=== PATIENT | male | born 1955 | race Caucasian/White ===

== ENCOUNTER 2017-06-24 13:21 | Observation (INO) | payer BC ==
[2017-06-24] MEDS ORDERED: DEXAMETHASONE 10 MG/ML VIAL ONE (13:55)
[2017-06-24] MEDS ORDERED: FENTANYL CITR 100 MCG/2 ML ONE ×2 (13:56→16:43)
[2017-06-24] MEDS ORDERED: ONDANSETRON 4 MG/2 ML VIAL ONE (13:56)
[2017-06-24] MEDS ORDERED: FAMOTIDINE 20 MG/2 ML VIAL IV ONE (13:56)
[2017-06-24] MEDS ORDERED: NA CHLORIDE 0.9% 1,000 ML ONE (13:56)
[2017-06-24] MEDS ORDERED: DIAZEPAM 10 MG/2 ML INJ SYRINGE ONE (13:58)
[2017-06-24 14:16] LABS: Absolute Lymphocytes (CBC) 0.6 K/uL (0.7-4.9); Absolute Monocytes 0.4 K/uL (0.1-1.3); Absolute Neutrophil 3.1 K/uL (1.8-8.0); Basophils % 0.5 % (0-1.3); Eosinophils % 1.4 % (0-4.4); MCH 33.7 pg (27.0-35.0); MCV 99.5 fL (80-100); MPV 8.8 fL (7.6-11.3); Monocytes % 8.9 % (3.3-12.3); RBC Red Blood Cell Count 4.52 M/uL (4.33-5.43)
[2017-06-24 14:18] LABS: Protime INR 1.01
[2017-06-24 14:31] LABS: Albumin 3.8 g/dL (3.2-5.5); Bilirubin Direct 0.1 mg/dL (0-0.2); Bilirubin Total 0.5 mg/dL (0.3-1.2); Magnesium 2.1 mg/dL (1.8-2.5); Protein, Total 6.6 g/dL (6.0-8.3)
[2017-06-24 14:34] LABS: CKMB Creatine Kinase MB 1.6 ng/ml (0.3-4.0)
--- NOTE | 2017-06-24 15:15 | RAD REPORT ---
EXAM DESCRIPTION: CT - Angio Aorta For Dissection - 06/24/2017 2:57 pm CLINICAL HISTORY: . Chest and abd pain COMPARISON: CT chest 2015 TECHNIQUE: Computed tomography angiography of the chest, abdomen pelvis were obtained. 100 cc Isovue 370 was administered intravenously. Coronal and sagittal reconstruction were performed. All CT scans are performed using dose optimization technique as appropriate and may include automated exposure control or mA/KV adjustment according to patient size. FINDINGS: An aortic dissection is not seen. An aortic aneurysm is not displayed. The celiac, SMA and ALBERT are patent . A lung consolidation is not present. A pericardial effusion is not seen. A pleural effusion is not n oted. Liver has a diminished attenuation consistent fatty infiltration Spleen, pancreas adrenals kidneys demonstrate no significant abnormality. A 2.7 centimeter right yousif l cyst is seen The appendix is normal. There no evidence diverticulitis. No ascites is noted. Small inguinal hernias contain fat IMPRESSION: Negative for an aortic dissection.
--- NOTE | 2017-06-24 15:16 | RAD REPORT ---
EXAM DESCRIPTION: Prasanth Single View06/24/2017 2:43 pm CLINICAL HISTORY: Chest pain COMPARISON: August 2016 FINDINGS: The lungs appear clear of acute infiltrate. The heart is normal size IMPRESSION: No acute abnormalities displayed
--- NOTE | 2017-06-24 16:11 | EDPHYS ---
Physician Documentation [facility] Name: Markel Yao Age: 62 yrs Sex: Male : 1955 Arrival Date: 06/24/2017 Time: 13:23 Bed 28 Private MD: ED Physician Uriah Archer HPI: 06/24 13:53 This 62 yrs old Male presents to ER via EMS with complaints of Back Pain. tania 13:53 The patient presents with pain and decreased range of motion, and an injury. The tania symptoms are located in the low back. Onset: The symptoms/episode began/occurred just prior to arrival. The pain radiates to the abdomen. Associated signs and symptoms: The patient has no apparent associated signs or symptoms. Modifying factors: The patient symptoms are alleviated by remaining still, the patient symptoms are aggravated by movement. Severity of symptoms: At their worst the symptoms were moderate, severe, in the emergency department the symptoms have improved, moderately. The patient has not experienced similar symptoms in the past. Historical: - Allergies: 13:26 No Known Allergies; ed1 - Home Meds: 13:26 levothyroxine 25 mcg tab 1 tab once daily [Active]; ed1 - PMHx: 13:26 Hypothyroidism; tonsil cancer; ed1 - PSHx: 13:26 None; ed1 - Immunization history:: Adult Immunizations unknown. - Social history:: Smoking status: Patient uses tobacco products, smokes one pack cigarettes per day. ROS: 13:54 Constitutional: Negative for fever, chills, and weight loss, Eyes: Negative for injury, tania pain, redness, and discharge, ENT: Negative for injury, pain, and discharge, Neck: Negative for injury, pain, and swelling, Cardiovascular: Negative for chest pain, palpitations, and edema, Respiratory: Negative for shortness of breath, cough, wheezing, and pleuritic chest pain, : Negative for injury, bleeding, discharge, and swelling, MS/Extremity: Negative for injury and deformity, Skin: Negative for injury, rash, and discoloration, Neuro: Negative for headache, weakness, numbness, tingling, and seizure, Psych: Negative for depression, anxiety, suicide ideation, homicidal ideation, and hallucinations, Allergy/Immunology: Negative for hives, rash, and allergies, Endocrine: Negative for neck swelling, polydipsia, polyuria, polyphagia, and marked weight changes, Hematologic/Lymphatic: Negative for swollen nodes, abnormal bleeding, and unusual bruising. 13:54 Abdomen/GI: Positive for abdominal pain, abdominal cramps, abdominal distension, of the right upper quadrant, left upper quadrant, right lower quadrant and left lower quadrant. Exam: 13:54 Constitutional: This is a well developed, well nourished patient who is awake, alert, tania and in no acute distress. Head/Face: Normocephalic, atraumatic. Eyes: Pupils equal round and reactive to light, extra-ocular motions intact. Lids and lashes normal. Conjunctiva and sclera are non-icteric and not injected. Cornea within normal limits. Periorbital areas with no swelling, redness, or edema. ENT: Nares patent. No nasal discharge, no septal abnormalities noted. Tympanic membranes are normal and external auditory canals are clear. Oropharynx with no redness, swelling, or masses, exudates, or evidence of obstruction, uvula midline. Mucous membranes moist. Neck: Trachea midline, no thyromegaly or masses palpated, and no cervical lymphadenopathy. Supple, full range of motion without nuchal rigidity, or vertebral point tenderness. No Meningismus. Chest/axilla: Normal chest wall appearance and motion. Nontender with no deformity. No lesions are appreciated. Cardiovascular: Regular rate and rhythm with a normal S1 and S2. No gallops, murmurs, or rubs. Normal PMI, no JVD. No pulse deficits. Respiratory: Lungs have equal breath sounds bilaterally, clear to auscultation and percussion. No rales, rhonchi or wheezes noted. No increased work of breathing, no retractions or nasal flaring. Male : Normal genitalia with no discharge or lesions. Skin: Warm, dry with normal turgor. Normal color with no rashes, no lesions, and no evidence of cellulitis. 13:54 Abdomen/GI: Inspection: distension, Bowel sounds: diminished, Palpation: mild abdominal tenderness, in the right upper quadrant, left upper quadrant, right lower quadrant and left lower quadrant. Vital Signs: 13:26 BP 151 / 108; Pulse 65; Resp 20; Temp 98.5(O); Pulse Ox 100% on R/A; Weight 83.91 kg ed1 (R); Height 5 ft. 11 in. (180.34 cm) (R); Pain 10/10; 14:37 BP 133 / 101; Pulse 69; Resp 18; Pulse Ox 97% on R/A; Pain 7/10; ed1 15:32 BP 129 / 93; Pulse 65; Resp 22; Pulse Ox 99% on R/A; Pain 10/10; ed1 17:40 BP 146 / 101; Pulse 67; Resp 18; Temp 98.1(O); Pulse Ox 98% on R/A; Pain 5/10; ed1 13:26 Body Mass Index 25.80 (83.91 kg, 180.34 cm) ed1 MDM: 13:41 Patient medically screened. [facility] 13:58 Data reviewed: vital signs, nurses notes, lab test result(s), EKG, radiologic studies, [facility] CT scan, plain films. 06/24 13:49 Order name: Basic Metabolic Panel; Complete Time: 16:06 tania 06/24 13:49 Order name: BNP; Complete Time: 16:06 tania 06/24 13:49 Order name: CBC with Diff; Complete Time: 16: tania 06/24 13:49 Order name: Ckmb; Complete Time: 16: tania 06/24 13:49 Order name: CPK; Complete Time: 16: tania 06/24 13:49 Order name: LFT's; Complete Time: 16: tania 06/24 13:49 Order name: Magnesium; Complete Time: 16: tania 06/24 13:49 Order name: PT-INR; Complete Time: 16:06 tania 06/24 13:49 Order name: Ptt, Activated; Complete Time: 16: tania 06/24 13:49 Order name: Troponin (emerg Dept Use Only); Complete Time: 16:06 tania 06/24 13:49 Order name: Lipase; Complete Time: 16:06 tania 06/24 13:49 Order name: Urine Culture [facility] 06/24 15:48 Order name: Urine Dipstick--Ancillary (enter results); Complete Time: 17:40 ag 06/24 16:21 Order name: Basic Metabolic Panel EDGA 06/24 13:49 Order name: XRAY Chest (1 view); Complete Time: 16:06 tnaia 06/24 13:49 Order name: EKG; Complete Time: 13:49 tania 05/20 13:49 Order name: CT Aorta for Dissection; Complete Time: 16:06 tania 06/24 16:21 Order name: Regular EDMS 06/24 16:21 Order name: Basic Metabolic Panel EDMS 06/24 16:21 Order name: CBC with Automated Diff EDMS 06/24 16:21 Order name: CBC with Automated Diff EDMS 06/24 16:21 Order name: Lumbar Spine Wo Con EDMS 06/24 13:49 Order name: Cardiac monitoring; Complete Time: 14:06 [facility] 06/24 13:49 Order name: EKG - Nurse/Tech; Complete Time: 14:06 [facility] 06/24 13:49 Order name: IV Saline Lock; Complete Time: 13:50 [facility] 06/24 13:49 Order name: Labs collected and sent; Complete Time: 14:06 [facility] 06/24 13:49 Order name: O2 Per Protocol; Complete Time: 13:50 [facility] 06/24 13:49 Order name: O2 Sat Monitoring; Complete Time: 13:50 [facility] 06/24 13:49 Order name: Urine Dipstick-Ancillary (obtain specimen); Complete Time: 16:05 [facility] Administered Medications: 14:10 Drug: NS 0.9% 1000 ml Route: IV; Rate: 125 ml/hr; Site: right forearm; ed1 18:16 Follow up: IV Status: Infusion continued upon admission ed1 14:10 Drug: Pepcid 20 mg Route: IVP; Site: right forearm; aa5 15:30 Follow up: Response: No adverse reaction ed1 14:13 Drug: fentaNYL (PF) 50 mcg Route: IVP; Site: right forearm; aa5 15:31 Follow up: Response: No adverse reaction; Pain is decreased ed1 14:13 Drug: Zofran 4 mg Route: IVP; Site: right forearm; aa5 15:31 Follow up: Response: No adverse reaction ed1 14:13 Drug: Valium 5 mg Route: IVP; Site: right forearm; aa5 15:30 Follow up: Response: No adverse reaction; Pain is decreased ed1 14:13 Drug: Decadron - Dexamethasone 10 mg Route: IVP; Site: right forearm; aa5 15:30 Follow up: Response: No adverse reaction ed1 16:50 Drug: fentaNYL (PF) 50 mcg Route: IVP; Site: right forearm; ed1 17:40 Follow up: Response: No adverse reaction; Pain is decreased ed1 17:15 Drug: Lovenox 40 mg Route: Sub-Q; Site: left lower abdomen; ed1 17:39 Follow up: Response: No adverse reaction ed1 Disposition: 06/24/17 16:10 Hospitalization ordered by Danny Milan for Observation. Preliminary diagnosis is Low back pain - intractable. - Bed requested for Telemetry/MedSurg (observation). - Status is Observation. ed1 - Condition is Stable. - Problem is new. - Symptoms have improved. UTI on Admission? No Signatures: Dispatcher [employer] EDMS Uriah Archer MD MD cha Calderon, Audri, RN RN aa5 Skylar Issa LVN CASH CLERK ed1 Scarlet Hawkins, RN RN df Corrections: (The following items were deleted from the chart) 17:23 16:10 Hospitalization Ordered by Danny Milan MD for Observation. Preliminary diagnosis df is Low back pain - intractable. Bed requested for Telemetry/MedSurg (observation). Status is Observation. Condition is Stable. Problem is new. Symptoms have improved. UTI on Admission? No. [facility] 18:16 17:23 06/24/2017 16:10 Hospitalization Ordered by Danny Milan MD for Observation. ed1 Preliminary diagnosis is Low back pain - intractable. Bed requested for Telemetry/MedSurg (observation). Status is Observation. Condition is Stable. Problem is new. Symptoms have improved. UTI on Admission? No. df
--- NOTE | 2017-06-24 16:11 | ER ---
Nurse's Notes [facility] Name: Markel Yao Age: 62 yrs Sex: Male : 1955 Arrival Date: 06/24/2017 Time: 13:23 Bed 28 Private MD: Diagnosis: Low back pain-intractable Presentation: 06/24 13:23 Presenting complaint: EMS states: Was walking and all of a sudden got lower back pain. ed1 Transition of care: patient was not received from another setting of care. Onset of symptoms was June 24, 2017 at 09:00. Initial Sepsis Screen: Does the patient meet any 2 criteria? No. Patient's initial sepsis screen is negative. Does the patient have a suspected source of infection? No. Patient's initial sepsis screen is negative. Care prior to arrival: Medication(s) given: Toradol 30mg IV initiated. 20 GA, in the right forearm, Glucose check: 138. 13:23 Method Of Arrival: EMS: [facility] ed1 13:35 Acuity: AVNI 4 aa5 Triage Assessment: 13:26 General: Appears uncomfortable, Behavior is cooperative, agitated. Pain: Complains of ed1 pain in low back area Pain radiates to abdomen, right leg and left leg Pain currently is 10 out of 10 on a pain scale. Musculoskeletal: Circulation, motion, and sensation intact. Capillary refill < 3 seconds, in bilateral toes. Range of motion: intact in all extremities, Reports pain in low back area. Historical: - Allergies: 13:26 No Known Allergies; ed1 - Home Meds: 13:26 levothyroxine 25 mcg tab 1 tab once daily [Active]; ed1 - PMHx: 13:26 Hypothyroidism; tonsil cancer; ed1 - PSHx: 13:26 None; ed1 - Immunization history:: Adult Immunizations unknown. - Social history:: Smoking status: Patient uses tobacco products, smokes one pack cigarettes per day. Screenin:29 Abuse screen: Denies threats or abuse. Denies injuries from another. Nutritional ed1 screening: No deficits noted. Tuberculosis screening: No symptoms or risk factors identified. Fall Risk No fall in past 12 months (0 pts). No secondary diagnosis (0 pts). IV access (20 points). Ambulatory Aid- None/Bed Rest/Nurse Assist (0 pts). Gait- Impaired (20 pts.). Mental Status- Oriented to own ability (0 pts). Total Lopez Fall Scale indicates Low Risk Score (25-44 pts). Fall prevention measures have been instituted. Side Rails Up X 2 As available Patient and Family Educated on Fall Prevention Program and strategies. Assessment: 13:29 General: Appears in no apparent distress. Pain: Complains of pain in low back area Pain ed1 radiates to abdomen, right leg and left leg Pain currently is 10 out of 10 on a pain scale. Quality of pain is described as sharp, shooting, stabbing, Pain began 4 hours ago. Is continuous. Neuro: Level of Consciousness is awake, alert, obeys commands, Oriented to person, place, time, situation, Necktie Maker are equal bilaterally Moves all extremities. Full function Speech is normal, Facial symmetry appears normal, Pupils are PERRLA, Intact Denies weakness blurred vision dizziness, difficulty swallowing, paresthesias numbness headache photophobia diplopia. Cardiovascular: Denies chest pain, Heart tones S1 S2 present Capillary refill < 3 seconds in bilateral fingers Patient's skin is warm and dry. Respiratory: Airway is patent Respiratory effort is even, unlabored, Respiratory pattern is regular, symmetrical, Breath sounds are clear bilaterally. GI: No signs and/or symptoms were reported involving the gastrointestinal system. : No signs and/or symptoms were reported regarding the genitourinary system. EENT: No signs and/or symptoms were reported regarding the EENT system. Derm: Skin is pink, warm \T\ dry. Musculoskeletal: Circulation, motion, and sensation intact. Capillary refill < 3 seconds, in bilateral fingers. 13:29 Reassessment: I agree with assessment completed by SIDNEY Cheng . aa5 14:37 Reassessment: Patient appears in no apparent distress at this time. Patient and/or ed1 family updated on plan of care and expected duration. Pain level reassessed. Patient is alert, oriented x 3, equal unlabored respirations, skin warm/dry/pink. Patient states feeling better. Patient states symptoms have improved. 15:32 Reassessment: Patient appears in no apparent distress at this time. Patient and/or ed1 family updated on plan of care and expected duration. Pain level reassessed. Patient is alert, oriented x 3, equal unlabored respirations, skin warm/dry/pink. Pt returned from CT and reports an increase in pain. Dr. Archer notified. Vital Signs: 13:26 BP 151 / 108; Pulse 65; Resp 20; Temp 98.5(O); Pulse Ox 100% on R/A; Weight 83.91 kg ed1 (R); Height 5 ft. 11 in. (180.34 cm) (R); Pain 10/10; 14:37 BP 133 / 101; Pulse 69; Resp 18; Pulse Ox 97% on R/A; Pain 7/10; ed1 15:32 BP 129 / 93; Pulse 65; Resp 22; Pulse Ox 99% on R/A; Pain 10/10; ed1 17:40 BP 146 / 101; Pulse 67; Resp 18; Temp 98.1(O); Pulse Ox 98% on R/A; Pain 5/10; ed1 13:26 Body Mass Index 25.80 (83.91 kg, 180.34 cm) ed1 ED Course: 13:23 Patient arrived in ED. ed1 13:26 Arm band placed on right wrist. ed1 13:29 Patient has correct armband on for positive identification. Bed in low position. Call ed1 light in reach. Side rails up X2. 13:29 Maintain EMS IV. Dressing intact. Good blood return noted. Site clean \T\ dry. Gauge \T\ ed 1 site: 20 g L FA. 13:35 Triage completed. aa5 13:41 Uriah Archer MD is Attending Physician. tania 13:49 Skylar Issa LVN is Primary Nurse. ed1 13:56 Radiology exam delayed due to lab results not completed at this time. (BUN/Creatinine). cw1 14:00 EKG done, by ED staff, reviewed by Uriah Archer MD. dh3 14:05 Initial lab(s) drawn, by pr, sent to lab. dh3 14:30 XRAY Chest (1 view) In Process Unspecified. EDMS 14:[address] Scan. ed1 14:55 CT completed. Patient moved to CT via stretcher. Patient moved back from CT. cw1 14:57 CT Aorta for Dissection In Process Unspecified. EDMS 16:09 Danny Milan MD is Hospitalizing Provider. tania 17:52 No provider procedures requiring assistance completed. Patient admitted, IV remains in ed1 place. intact, No redness/swelling at site. Administered Medications: 14:10 Drug: NS 0.9% 1000 ml Route: IV; Rate: 125 ml/hr; Site: right forearm; ed1 18:16 Follow up: IV Status: Infusion continued upon admission ed1 14:10 Drug: Pepcid 20 mg Route: IVP; Site: right forearm; aa5 15:30 Follow up: Response: No adverse reaction ed1 14:13 Drug: fentaNYL (PF) 50 mcg Route: IVP; Site: right forearm; aa5 15:31 Follow up: Response: No adverse reaction; Pain is decreased ed1 14:13 Drug: Zofran 4 mg Route: IVP; Site: right forearm; aa5 15:31 Follow up: Response: No adverse reaction ed1 14:13 Drug: Valium 5 mg Route: IVP; Site: right forearm; aa5 15:30 Follow up: Response: No adverse reaction; Pain is decreased ed1 14:13 Drug: Decadron - Dexamethasone 10 mg Route: IVP; Site: right forearm; aa5 15:30 Follow up: Response: No adverse reaction ed1 16:50 Drug: fentaNYL (PF) 50 mcg Route: IVP; Site: right forearm; ed1 17:40 Follow up: Response: No adverse reaction; Pain is decreased ed1 17:15 Drug: Lovenox 40 mg Route: Sub-Q; Site: left lower abdomen; ed1 17:39 Follow up: Response: No adverse reaction ed1 Outcome: 16:10 Decision to Hospitalize by Provider. tania 17:52 Admitted to Tele accompanied by tech, family with patient, via stretcher, room 423, ed1 with chart, Report called to MACEY Bell 17:52 Condition: stable 17:52 Discharge instructions given to patient, family, Instructed on the need for admit, Demonstrated understanding of instructions. 18:16 Patient left the ED. ed1 Signatures: Dispatcher [employer] Uriah Ramos MD MD cha Calderon, Audri RN RN aa5 Skylar Issa, INJECTION MOULDING MACHINE OPERATOR INJECTION MOULDING MACHINE OPERATOR ed1 Natasha Cam 1 Minnie Soliman 3 Corrections: (The following items were deleted from the chart) 13:31 13:29 Fall Risk None identified. ed1 ed1
[2017-06-24] MEDS ORDERED: ACETAMINOPHEN 500 MG TAB PO PRN (16:15)
[2017-06-24] MEDS ORDERED: ONDANSETRON 4 MG/2 ML VIAL IV PRN (16:15)
[2017-06-24] MEDS ORDERED: IBUPROFEN 400 MG TAB PO PRN (16:18)
[2017-06-24 17:07] LABS: Urine Blood NEGATIVE (NEG); Urine Glucose NEGATIVE (NEG); Urine Protein NEGATIVE (NEG)
[2017-06-24] MEDS ORDERED: ENOXAPARIN 40 MG/0.4 ML SQ ONE (17:10)
[2017-06-24] MEDS: ENOXAPARIN 40 MG/0.4 ML SQ SCH (18:00)
[2017-06-24 18:35] VITALS: BMI 25.7
[2017-06-24] MEDS: NA CHLORIDE 0.9% 1,000 ML IV SCH ×2 (18:50→22:01)
[2017-06-24] MEDS: Morphine 2 MG/2 ML SYR IV PRN ×2 (19:37→23:42)
[2017-06-24] MEDS: FAMOTIDINE 20 MG/2 ML VIAL IV SCH (22:01)
[2017-06-24] MEDS: DIAZEPAM 5 MG TABLET PO PRN (22:01)
[2017-06-25] MEDS: Morphine 2 MG/2 ML SYR IV PRN ×2 (03:45→07:38)
[2017-06-25] MEDS: LEVOTHYROXINE SOD 0.025 MG TAB PO SCH (05:44)
[2017-06-25 06:08] LABS: Absolute Lymphocytes (CBC) 0.3 K/uL (0.7-4.9); Absolute Monocytes 0.2 K/uL (0.1-1.3); Absolute Neutrophil 6.6 K/uL (1.8-8.0); Basophils % 0.1 % (0-1.3); Hematocrit 45.1 % (39.6-49.0); Lymphocytes % 3.8 % (15.3-44.8); MCH 33.7 pg (27.0-35.0); MCV 100.6 fL (80-100); MPV 9.3 fL (7.6-11.3); Monocytes % 2.3 % (3.3-12.3); RBC Red Blood Cell Count 4.48 M/uL (4.33-5.43)
[2017-06-25 06:16] LABS: Potassium 5.1 mEq/L (3.6-5.0)
[2017-06-25 07:05] LABS: Blood Morphology Comment NOT SEEN (NOT SEEN); Platelet Estimate ADEQ; Urine White Blood Cell Casts OK
--- NOTE | 2017-06-25 08:01 | EKG ---
Test Date: 2017-06-24 Test Time: 13:55:23 Exercise Teacher: FERNIE MEASUREMENT RESULTS: Intervals: Rate: 64 RI: 164 QRSD: 114 QT: 406 QTc: 418 Lamont: P: 49 RI: 164 QRS: -12 T: 22 INTERPRETIVE STATEMENTS: Normal sinus rhythm Incomplete right bundle branch block Borderline ECG Compared to ECG 09/17/2014 15:59:32 No significant changes Electronically Signed On 06-25-17 08:00:33 CDT by Nuno Loredo
[2017-06-25] MEDS ORDERED: MORPHINE 4 MG/ML SYR IV PRN (08:53)
[2017-06-25] MEDS: ENOXAPARIN 40 MG/0.4 ML SQ SCH (09:57)
[2017-06-25] MEDS: FAMOTIDINE 20 MG/2 ML VIAL IV SCH ×2 (10:55→22:48)
--- NOTE | 2017-06-25 12:36 | RAD REPORT ---
EXAM DESCRIPTION: MRI - Lumbar Spine Wo Con - 06/25/2017 8:20 am CLINICAL HISTORY: Intractable back pain COMPARISON: None. TECHNIQUE: Sagittal T1-weighted, T2-weighted and T2-STIR weighted sequences were obtained. Axial T1 -weighted and heavily T2-weighted sequenceswere obtained through the lumbar disc levels. FINDINGS: Lumbar bodies are normal in height and alignment. No suspicious marrow signal. No paraspi nal masses. Conus is normal with no clumping or thickening of the cauda equina. T12-L1 level: Disc is desiccated. No herniation or significant disc bulge. L1-2 level: Disc is desiccated without loss in disc height. No herniation or significant disc bulge. L2-3 level: Minimal disc desiccation. No herniation or significant disc bulge in the central canal. M inimal foraminal disc bulge seen. No canal or foramen stenosis. L3-4 level: No herniation or significant disc bulge in the central canal. Bilateral foraminal disc bu lge is mild with no overall encroachment. L4-5 level: Disc desiccation is present with a slight loss in disc height. Annular fissures in the di sc are present in each exit foramen. Foraminal disc bulge changes are present mild to moderate with p erineural fat still surrounding the exiting nerve roots. No significant central canal finding. L5-S1 level: No significant findings. IMPRESSION: L4-5 disc desiccation annular fissures in the each exit foramen. Disc bulge changes are present but no significant foraminal stenosis. Degenerative disc changes are scattered elsewhere in the lumbar spine, detailed at each level. No sig nificant canal or foramen stenosis. No compression fracture or other finding to explain intractable back pain symptoms.
[2017-06-25] MEDS: NA CHLORIDE 0.9% 1,000 ML IV SCH ×2 (13:00→22:49)
--- NOTE | 2017-06-25 20:56 | P.HP ---
Certification for Inpatient Patient admitted to: Observation With expected LOS: <2 Midnights Practitioner: I am a practitioner with admitting privileges, knowledge of patient current condition, hospital course, and medical plan of care. Services: Services provided to patient in accordance with Admission requirements found in Title 42 Section 412.3 of the Code of Federal Regulations Patient History Date of Service: 06/25/17 Reason for admission: SEVERE BACK PAIN History of Present Illness: ELISABET HAS HAD SEVERE MID TO LOW BACK PAIN WITH RADIATION TO FRONT, ALL OF A SUDDEN. HE DENIES ANY HEAVY WORK. HE DOES DRINK ALCOHOL IN SIGNIFICANT AMOUNT AND HAS BEEN ADVISED TO QUIT BEFORE. HIS LIPASE ON ADMISSION WAS MILD HIGH. DR. CHONG DID DISSECTION PROTOCOL THAT IS NEGATIVE AND WHEN I CAME TO SEE HIM IN AM HE WAS DOWN FOR MRI. I CAME BACK AGAIN AT LUNCH TO SEE HIM. HE STILL HAS PAIN BUT LESSER UNDER THE EFFECT OF MORPHINE. I ORDERED SONOGRAM AND THAT IS NOT DONE YET. Allergies No Known Allergies Allergy (Verified 06/24/17 20:32) Home Medications: Levothyroxine [Synthroid*] 0.05 mg PO 0600 06/24/17 - Past Medical/Surgical History Has patient received pneumonia vaccine in the past: No Diabetic: No -: Tonsil Cancer -: Hypothyroidism -: Tonsil Cancer Removal (Robotic Neck Disssection) -: 8 tooth extraction - Family History Mother Notes: Dementia Father -: Diabetes - Social History Smoking Status: Current every day smoker Alcohol use: Yes CD- Drugs: No Caffeine use: Yes Place of Residence: Home Review of Systems 10-point ROS is otherwise unremarkable Musculoskeletal: Back Pain Physical Examination - Vital Signs Temperature: 97.1 F Blood Pressure: 132/89 Pulse: 59 Respirations: 18 Pulse Ox (%): 98 - Physical Exam General: Alert, Moderate distress (HE IS ABLE TO WALK AND GET UP OUT OF BED NOW. HE SAYS IT WAS IMPOSSIBLE YESTERDAY.) HEENT: Atraumatic, PERRLA, Mucous membr. moist/pink, EOMI, Sclerae nonicteric Neck: Supple, 2+ carotid pulse no bruit, No LAD, Without JVD or thyroid abnormality Respiratory: Clear to auscultation bilaterally, Normal air movement Cardiovascular: Regular rate/rhythm, Normal S1 S2 Gastrointestinal: Normal bowel sounds, No tenderness Musculoskeletal: No tenderness Integumentary: No rashes Neurological: Normal gait, Normal speech, Normal strength at 5/5 x4 extr, Normal tone, Normal affect Lymphatics: No axilla or inguinal lymphadenopathy Assessment and Plan - Problems (Diagnosis) (1) Alcoholic pancreatitis Current Visit: Yes Status: Acute Plan: HE WILL QUIT ALCOHOL HE SAYS. SO FAR STABLE REDO LAB IN AM IV FLUIDS. Qualifiers: Chronicity: acute (2) Intractable back pain Onset Date: 06/25/17 Current Visit: Yes Status: Acute Plan: THIS COULD BE FROM DISC IMPENGEMENT . PAIN HAS IMPROVED. SONOGRAM DONE TO MAKE SURE ABOUT GB HE ALSO HAD PAIN IN THE UPPER QUADRANTS. - Advance Directives Does patient have a Living Will: No Does patient have a Durable POA for Healthcare: No
--- NOTE | 2017-06-25 21:01 | RAD REPORT ---
EXAM DESCRIPTION: US - Abdomen Exam Limited - 06/25/2017 8:54 pm CLINICAL HISTORY: Abdominal pain. COMPARISON: None. FINDINGS: The gallbladder demonstrates no gallstones. No pericholecystic fluid or gallbladder wall t hickening. The common bile duct is normal measuring 4 mm. The liver demonstrates no findings of intrahepatic biliary dilatation. IMPRESSION: Unremarkable examination.
[2017-06-25] MEDS: DIAZEPAM 5 MG TABLET PO PRN (22:54)
[2017-06-26] MEDS: METHYLPREDNISOLONE 40 MG INJ IV SCH ×2 (00:10→05:46)
[2017-06-26] MEDS: LEVOTHYROXINE SOD 0.025 MG TAB PO SCH (05:46)
[2017-06-26 07:43] VITALS: BP 149/94; TEMP 97.6
[2017-06-26] MEDS: FAMOTIDINE 20 MG/2 ML VIAL IV SCH (09:00)
[2017-06-26] MEDS: NA CHLORIDE 0.9% 1,000 ML IV SCH (09:00)
[2017-06-26] MEDS: ENOXAPARIN 40 MG/0.4 ML SQ SCH (09:27)
[2017-06-26 15:23] VITALS: O2SAT 97
--- NOTE | 2017-06-26 18:08 | P.DS ---
Admission Date: 06/24/17 Discharge Date: 06/26/17 Disposition: ROUTINE DISCHARGE Discharge Condition: FAIR Reason for Admission: SEVERE BACK PAIN - Problems (1) Alcoholic pancreatitis Status: Acute Qualifiers: Chronicity: acute (2) Intractable back pain Onset Date: 06/25/17 Status: Acute Brief History of Present Illness: ELISABET HAS HAD SEVERE MID TO LOW BACK PAIN WITH RADIATION TO FRONT, ALL OF A SUDDEN. HE DENIES ANY HEAVY WORK. HE DOES DRINK ALCOHOL IN SIGNIFICANT AMOUNT AND HAS BEEN ADVISED TO QUIT BEFORE. HIS LIPASE ON ADMISSION WAS MILD HIGH. DR. CHONG DID DISSECTION PROTOCOL THAT IS NEGATIVE AND WHEN I CAME TO SEE HIM IN AM HE WAS DOWN FOR MRI. I CAME BACK AGAIN AT [facility] TO SEE HIM. HE STILL HAS PAIN BUT LESSER UNDER THE EFFECT OF MORPHINE. I ORDERED SONOGRAM AND THAT IS NOT DONE YET. Hospital Course: HIS SEVERE BACK PAIN HAS IMPROVED WITH STEROIDS SONOGRAM IS NEGATIVE MRI SHOWS DISK IMPINGEMENT. HE IS STABLE FOR HOME. Vital Signs/Physical Exam: Temp Pulse Resp BP Pulse Ox 97.6 F 58 17 149/94 H 97 06/26/17 07:42 06/26/17 07:42 06/26/17 07:42 06/26/17 07:42 06/26/17 07:42 Laboratory Data at Discharge: WBC 7.1 K/uL (4.3-10.9) D 06/25/17 05:31 Hgb 15.1 g/dL (13.6-17.9) 06/25/17 05:31 Hct 45.1 % (39.6-49.0) 06/25/17 05:31 Plt Count 155 K/uL (152-406) 06/25/17 05:31 PT 11.9 SECONDS (9.5-12.5) 06/24/17 14:02 INR 1.01 06/24/17 14:02 APTT 27.3 SECONDS (24.3-36.9) 06/24/17 14:02 Sodium 138 mEq/L (135-145) 06/25/17 05:31 Potassium 5.1 mEq/L (3.6-5.0) H 06/25/17 05:31 BUN 16 mg/dL (6-20) 06/25/17 05:31 Creatinine 0.90 mg/dL (0.61-1.24) 06/25/17 05:31 Glucose 127 mg/dL (65-120) H 06/25/17 05:31 Magnesium 2.1 mg/dL (1.8-2.5) 06/24/17 14:02 Total Bilirubin 0.5 mg/dL (0.3-1.2) 06/24/17 14:02 AST 26 IU/L (10-42) 06/24/17 14:02 ALT 36 IU/L (10-60) 06/24/17 14:02 Alkaline Phosphatase 68 IU/L (42-121) 06/24/17 14:02 B-Natriuretic Peptide < 10 pg/ml (<=100) 06/24/17 14:02 Lipase 52 U/L (22-51) H 06/24/17 14:02 Home Medications: Levothyroxine [Synthroid*] 0.05 mg PO 0600 06/24/17
== END 2017-06-26 09:55 | disposition home or self-care (01) ==
LOC: ER 13:21 → ERHOLD 16:11 → 4TH 17:55
PROVIDERS: ADMIT Internal Medicine; ATTEND Internal Medicine
DX: K85.20 Alcohol induced acute pancreatitis without necrosis or infection (principal); M54.5 Low back pain; E03.9 Hypothyroidism, unspecified; Z85.818 Personal history of malignant neoplasm of other sites of lip, oral cavity, and pharynx; F17.210 Nicotine dependence, cigarettes, uncomplicated
CPT/HCPCS: 36415; 71045; 71275; 72148; 74175; 76705; 80048; 80076; 81003; 82550; 82553; 83690; 83735; 83880; 84484; 85025; 85610; 85730; 87086; 87088; 93005; 96361; 96372; 96374; 96375; 99285; G0378; J1100; J1650; J2270; J2405; J2920; J3010; J3360; J7030; Q9967

== ENCOUNTER 2018-08-04 06:05 | Emergency (ER) | payer BC ==
--- OUTSIDE RECORDS SUMMARY | 2018-08-04 06:07 | XMS REPORT | Summary of Care ---
:1955 Author Name JAS TAYLOR M.D. Address [facility] Unavailable , Care Team Providers Name Role Phone JAS TAYLOR M.D. 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 Medications Name Dates Details Levothyroxine Sodium TABS Refills: 0 Active Gabapentin 100 MG Oral Capsule Refills: 0 Active Allergies and Adverse Reactions Name Dates Details No Known Allergies (Allergy) Status: Active Past Medical History Name Dates Details History of Acute tonsillitis (463, J03.90) Status: Resolved History of earache (V12.49, Z86.69) Status: Resolved History of Neck mass (784.2, R22.1) Status: Resolved History of Sore throat (462, J02.9) Status: Resolved History of Tonsillar mass (784.2, R22.0) Status: Resolved Procedures Procedure Dates Details History of Biopsy Oropharynx Lingual Tonsil Neoplasm Completed History of Palatopharyngoplasty Completed History of Biopsy Oropharynx Tonsil Completed Immunization Name Dates Details Immunizations not documented Family History Name Dates Details No pertinent family history (V49.89, Z78.9) Comments: Family History Status: Active Name Dates Details No pertinent family history (V49.89, Z78.9) Status: Active Social History Name Dates Details - Status: Name Dates Details Current some day smoker Vital Signs Date Test Result Details [id number] BP Systolic 161 mm[Hg] Status: Comments: Location: LUE; Position: Sitting BP Diastolic 106 mm[Hg] Status: Comments: Location: LUE; Position: Sitting Height 71 in Status: Weight 191.5625 lb Status: Body Mass Index Calculated 26.72 kg/m2 Status: Body Surface Area Calculated 2.07 m2 Status: Heart Rate 79 /min Status: Results Date Description Value Details [id number] CT Neck soft tissue w contrast 35183 Neck soft tissue w SEE NOTES Comments: EXAMINATION: CT soft tissue neck with contrastDATE: 01/25/2018INDICATION: Malignant neoplasm of tonsil.FINDINGS: CT images of the soft tissues of the neck performed following intravenousadministration [address] 0 mL Omnipaque 350 contrast material. Multiplanar reformattingis supplied along with the source data. Comparison made to an exam dated and baseline study dated 03/15/2015Over the interval, th ere has been little important change. Postoperativechanges in the right tonsillar resection and right neck dissection again noted.There are still some treatment changes evident in the supraglottic laryn x andpharyngeal mucosa. I do not see any residual recurrent mass lesion.There is no adenopathy.The paranasal sinuses and nasopharynx are unremarkable.IMPRESSION:Stable postoperative changes.--Read by: Austin Stone MDDictated Date/time: 01/25/18 16:07Electronically Signed by: Austin Stone MD 01/26/1816:45FINAL REPORT [id number] CT Chest w contrast [address] SEE NOTES Comments: EXAM: CT CHEST WITH CONTRASTDATE: 01/25/2018 10:18 CSTINDICATION: - R13.13 Dysphagia, pharyngeal phaseADDITIONAL CLINICAL INFORMATION: Malignant neoplasm of tonsilCOMPARISON: TECHNIQUE: Vo lumetric CT of the chest is acquired following intravenousadministration of contrast. Axial, coronal and sagittal images are provided.MIP reconstructions are generated.IV Contrast: 150 mL Omnipaque 350. DLP: 623 mGy-cmFINDINGS: Lines, tubes and hardware: None.Lower neck: The visible portions of the lower neck and thyroid areunremarkable.Axilla: Clear.Airway: Patent.Lungs and pleura: Clear.Mediastinum , rita and intrathoracic lymph nodes: Normal.Heart, pericardium and great vessels: Unremarkable.Upper abdomen: Unremarkable.Bones: No acute abnormality. Age-related degenerative findings.Soft tissues: Normal.IMPRESSION: 1. No acute or metastatic disease in the chest--This report was dictated by a Hospital Clerk/Fellow/Physician Construction Worker. Sabineave personallyreviewed the images as well as the interp retation and agree with the findings.Read by: Opal Handley MD Resident/Fellow/PhysicianAssistant: Opal Handley MDDictated Date/time: 01/25/18 12:47Electronically Signed by : Hector Fitch MD 01/27/1811:40FINAL REPORT Plan of Care Name Dates Details Planned Observations Planned Goals not documented Planned Encounters Appointment; JAS TAYLOR M.D. On: 15-Aug-2018 11:00 Interventions Provided Follow-ups/ReferralsFollow-up visit in 6 months; Done: 07 Feb 2018PlanCT neck and chest reviewed, no cancerNED on exam todayFollow-up 6 months Instructions Name Dates Details Instructions not documented Encounters Appointment; JAS TAYLOR M.D. On: 10-Feb-2016 13:00 Encounter Diagnosis: Problem not documented Appointment; JAS TAYLOR M.D. On: 10-Aug-2016 13:30 Encounter Diagnosis: Problem not documented Appointment; JAS TAYLOR M.D. On: 14-Dec-2016 13:30 Encounter Diagnosis: Problem not documented Appointment; JAS TAYLOR M.D. On: 14-Jun-2017 11:00 Encounter Diagnosis: Problem not documented Appointment; JAS TAYLOR M.D. On: 20-Jul-2017 12:45 Encounter Diagnosis: Problem not documented Appointment; JAS TAYLOR M.D. On: 25-Jan-2018 13:15 Encounter Diagnosis: Problem not documented Appointment; JAS TAYLOR M.D. On: 07-Feb-2018 10:30 Encounter Diagnosis: Problem not documented
[2018-08-04] MEDS ORDERED: MORPHINE 4 MG/ML SYR ONE (07:03)
[2018-08-04] MEDS ORDERED: NA CHLORIDE 0.9% 1,000 ML ONE (07:03)
[2018-08-04] MEDS ORDERED: ONDANSETRON 4 MG/2 ML VIAL ONE (07:03)
[2018-08-04 07:13] LABS: Absolute Lymphocytes (CBC) 0.2 K/uL (0.7-4.9); Basophils % 0.2 % (0-1.3); Eosinophils % 0.8 % (0-4.4); Hematocrit 46.4 % (39.6-49.0); Lymphocytes % 3.3 % (15.3-44.8); Monocytes % 9.2 % (3.3-12.3); RBC Red Blood Cell Count 4.78 M/uL (4.33-5.43)
[2018-08-04 07:24] LABS: Albumin 3.9 g/dL (3.4-5.0); Bilirubin Direct 0.2 mg/dL (0-0.2); Bilirubin Total 0.7 mg/dL (0.2-1.0); Potassium 4.2 mmol/L (3.5-5.1); Protein, Total 7.3 g/dL (6.4-8.2)
[2018-08-04 07:57] LABS: Blood Morphology Comment NOT SEEN (NOT SEEN); Platelet Estimate ADEQ
--- NOTE | 2018-08-04 08:17 | RAD REPORT ---
EXAM DESCRIPTION: CTAbdomen Pelvis W Contrast - 08/04/2018 7:59 am CLINICAL HISTORY: Abdominal pain. ABD PAIN COMPARISON: CT ABD PELVIS W CONTRAST dated 02/02/2013; Angio Aorta For Dissection dated 06/24/2017 TECHNIQUE: Biphasic CT imaging of the abdomen and pelvis was performed with 100 ml non-ionic IV cont rast. All CT scans are performed using dose optimization technique as appropriate and may include automated exposure control or mA/KV adjustment according to patient size. FINDINGS: The lung bases are clear. Diffuse mild fatty liver. No focal liver lesion or biliary dilatation seen. The spleen, pancreas, adr enal glands and kidneys show no acute process. Benign bilateral renal cysts. Thickened and inflamed loops of small intestine are seen in the lower abdomen a few small lymph nodes seen in the small bowel mesenteric. The distal small intestine appears predominantly involved. The a ppendix is normal. Mild thickening of the cecum wall also seen. Small amount of free fluid is seen in the pelvis. Prominent sigmoid diverticulosis without diverticulitis. No suspicious bony findings. IMPRESSION: Moderately inflamed distal small bowel loops are present suggesting inflammatory bowel d isease or enteritis.
--- NOTE | 2018-08-04 08:34 | EDPHYS ---
Physician Documentation [facility] Name: Markel Yao Age: 63 yrs Sex: Male : 1955 Arrival Date: 08/04/2018 Time: 06:16 Bed 19 Private MD: Danny Milan V ED Physician Ever Carvajal HPI: 08/04 06:54 This 63 yrs old Male presents to ER via Ambulatory with complaints of kb Abdominal Pain. 06:54 The patient presents with abdominal pain that is diffuse. Onset: The symptoms/episode kb began/occurred last night, at 23:00. The symptoms do not radiate. Associated signs and symptoms: Pertinent positives: diarrhea, nausea, Pertinent negatives: fever, vomiting. The symptoms are described as intermittent. Modifying factors: The symptoms are alleviated by nothing, the symptoms are aggravated by nothing. Severity of pain: At its worst the pain was moderate in the emergency department the pain is unchanged. The patient has not experienced similar symptoms in the past. The patient has not recently seen a physician. Pt reports he started having diffuse abd pain last night with nausea, diarrhea and chills. States "I googled pancreatic cancer and I have every damn symptom.". Historical: - Allergies: 06:40 No Known Allergies; fc - Home Meds: 06:40 levothyroxine [Active]; fc - PMHx: 06:40 Hypothyroidism; tonsil cancer; High Cholesterol; Pancreatitis; fc - PSHx: 06:40 throat surg; fc - Immunization history:: Last tetanus immunization: up to date. - Social history:: Smoking status: Patient uses tobacco products, smokes one pack cigarettes per day. Patient uses alcohol, 6 beers and 3 mixed drinks daily. - Ebola Screening: : Patient negative for fever greater than or equal to 101.5 degrees Fahrenheit, and additional compatible Ebola Virus Disease symptoms Patient denies exposure to infectious person Patient denies travel to an Ebola-affected area in the 21 days before illness onset. ROS: 06:53 Constitutional: Negative for fever, chills, and weight loss, Cardiovascular: Negative kb for chest pain, palpitations, and edema, Respiratory: Negative for shortness of breath, cough, wheezing, and pleuritic chest pain, Back: Negative for injury and pain, : Negative for injury, bleeding, discharge, and swelling, MS/Extremity: Negative for injury and deformity, Skin: Negative for injury, rash, and discoloration, Neuro: Negative for headache, weakness, numbness, tingling, and seizure. 06:53 Abdomen/GI: Positive for abdominal pain, nausea, diarrhea, Negative for vomiting, constipation, abdominal cramps, abdominal distension, anorexia. Exam: 06:53 Constitutional: This is a well developed, well nourished patient who is awake, alert, kb and in no acute distress. Head/Face: Normocephalic, atraumatic. ENT: Nares patent. No nasal discharge, no septal abnormalities noted. Tympanic membranes are normal and external auditory canals are clear. Oropharynx with no redness, swelling, or masses, exudates, or evidence of obstruction, uvula midline. Mucous membranes moist. Neck: Trachea midline, no thyromegaly or masses palpated, and no cervical lymphadenopathy. Supple, full range of motion without nuchal rigidity, or vertebral point tenderness. No Meningismus. Chest/axilla: Normal chest wall appearance and motion. Nontender with no deformity. No lesions are appreciated. Cardiovascular: Regular rate and rhythm with a normal S1 and S2. No gallops, murmurs, or rubs. Normal PMI, no JVD. No pulse deficits. Respiratory: Lungs have equal breath sounds bilaterally, clear to auscultation and percussion. No rales, rhonchi or wheezes noted. No increased work of breathing, no retractions or nasal flaring. Back: No spinal tenderness. No costovertebral tenderness. Full range of motion. Skin: Warm, dry with normal turgor. Normal color with no rashes, no lesions, and no evidence of cellulitis. MS/ Extremity: Pulses equal, no cyanosis. Neurovascular intact. Full, normal range of motion. Neuro: Awake and alert, GCS 15, oriented to person, place, time, and situation. Cranial nerves II-XII grossly intact. Motor strength 5/5 in all extremities. Sensory grossly intact. Cerebellar exam normal. Normal gait. 06:53 Abdomen/GI: Inspection: abdomen appears normal, Bowel sounds: normal, in all quadrants, Palpation: soft, in all quadrants, moderate abdominal tenderness, in the right lower quadrant and left lower quadrant. Vital Signs: 06:30 BP 130 / 104; Pulse 103; Resp 20; Temp 98.7(O); Pulse Ox 98% on R/A; Weight 83.91 kg fc (R); Height 5 ft. 11 in. (180.34 cm) (R); Pain 8/10; 07:04 BP 112 / 86; Pulse 91; Resp 18; Temp 99.4(O); Pulse Ox 96% on R/A; Pain 8/10; em 08:26 BP 119 / 85; Pulse 87; Resp 18; Pulse Ox 95% on R/A; em 06:30 Body Mass Index 25.80 (83.91 kg, 180.34 cm) MDM: 06:42 Patient medically screened. kb 06:53 Data reviewed: vital signs, nurses notes. Data interpreted: Pulse oximetry: on room air kb is 98 %. Interpretation: normal. 08:31 Counseling: I had a detailed discussion with the patient and/or guardian regarding: the kb historical points, exam findings, and any diagnostic results supporting the discharge/admit diagnosis, lab results, radiology results, the need for outpatient follow up, a family practitioner, a panel beater, to return to the emergency department if symptoms worsen or persist or if there are any questions or concerns that arise at home. 08:31 ED course: Pt drinks alcohol daily. Flagyl not given for this reason. kb 08/04 06:42 Order name: Basic Metabolic Panel kb 08/04 06:42 Order name: CBC with Diff; Complete Time: 08:02 kb 08/04 06:42 Order name: Hepatic Function; Complete Time: 07:29 kb 08/04 06:42 Order name: Lipase; Complete Time: 07:29 kb 08/04 06:43 Order name: Basic Metabolic Panel; Complete Time: 07:29 EDMS 08/04 07:16 Order name: Manual Differential; Complete Time: 08:02 EDMS 08/04 06:42 Order name: CT Abd/Pelvis - IV Contrast Only; Complete Time: 08:24 kb 08/04 06:42 Order name: IV Saline Lock; Complete Time: 07:01 kb 08/04 06:42 Order name: Labs collected and sent; Complete Time: 07:01 kb Administered Medications: 06:55 Drug: Zofran 4 mg Route: IVP; Site: right forearm; rr5 08:45 Follow up: Response: No adverse reaction; Pain is decreased em 06:55 Drug: NS 0.9% 1000 ml Route: IV; Rate: 1000 ml; Site: right forearm; rr5 08:45 Follow up: IV Status: Completed infusion; IV Intake: 1000ml em 06:57 Drug: morphine 4 mg Route: IVP; Site: right forearm; rr5 08:45 Follow up: Response: No adverse reaction; Pain is decreased em 08:38 Drug: Cipro 500 mg Route: PO; em 08:45 Follow up: Response: Medication administered at discharge. em Disposition: 19:37 Co-signature as Attending Physician, Ever Carvajal MD. Disposition: 08/04/18 08:32 Discharged to Home. Impression: Enteritis. - Condition is Stable. - Discharge Instructions: Viral Gastroenteritis, Adult, [id number]. - Prescriptions for Bentyl 20 mg Oral Tablet - take 1 tablet by ORAL route every 6 hours As needed; 20 tablet. Cipro 500 mg Oral Tablet - take 1 tablet by ORAL route every 12 hours for 10 days; 20 tablet. Zofran 4 mg Oral Tablet - take 1 tablet by ORAL route every 6 hours As needed; 20 tablet. - Medication Reconciliation Form, Thank You Letter, Antibiotic Education, Prescription Opioid Use form. - Follow up: Emergency Department; When: As needed; Reason: Worsening of condition. Follow up: Private Physician; When: 2 - 3 days; Reason: Recheck today's complaints, Continuance of care, Re-evaluation by your physician. Signatures: Dispatcher [employer] EDMO Marline Obrien, Sydnee Aguilar, RN RN Isael Givens, MINUTE CLERK FOR BASIC TRAFFIC MINUTE CLERK FOR BASIC TRAFFIC Ever Carvajal MD MD Devendra Arnett RN RN rr5 Corrections: (The following items were deleted from the chart) 08:46 08:32 08/04/2018 08:32 Discharged to Home. Impression: Enteritis. Condition is Stable. em Forms are Medication Reconciliation Form, Thank You Letter, Antibiotic Education, Prescription Opioid Use. Follow up: Emergency Department; When: As needed; Reason: Worsening of condition. Follow up: Private Physician; When: 2 - 3 days; Reason: Recheck today's complaints, Continuance of care, Re-evaluation by your physician. kb
--- NOTE | 2018-08-04 08:34 | ER ---
Nurse's Notes [facility] Name: Markel Yao Age: 63 yrs Sex: Male : 1955 Arrival Date: 08/04/2018 Time: 06:16 Bed 19 Private MD: Danny Milan V Diagnosis: Enteritis Presentation: 08/04 06:30 Presenting complaint: Patient states: that he is having abd pain all over along with fc chills, sweats, nausea and diarrhea. Denies any vomiting. Transition of care: patient was not received from another setting of care. Onset of symptoms was August 03, 2018 at 23:00. Risk Assessment: Do you want to hurt yourself or someone else? Patient reports no desire to harm self or others. Initial Sepsis Screen: Does the patient meet any 2 criteria? HR > 90 bpm. Yes Does the patient have a suspected source of infection? No. Patient's initial sepsis screen is negative. Care prior to arrival: None. 06:30 Method Of Arrival: Ambulatory 06:30 Acuity: AVNI 3 fc Historical: - Allergies: 06:40 No Known Allergies; fc - Home Meds: 06:40 levothyroxine [Active]; fc - PMHx: 06:40 Hypothyroidism; tonsil cancer; High Cholesterol; Pancreatitis; fc - PSHx: 06:40 throat surg; fc - Immunization history:: Last tetanus immunization: up to date. - Social history:: Smoking status: Patient uses tobacco products, smokes one pack cigarettes per day. Patient uses alcohol, 6 beers and 3 mixed drinks daily. - Ebola Screening: : Patient negative for fever greater than or equal to 101.5 degrees Fahrenheit, and additional compatible Ebola Virus Disease symptoms Patient denies exposure to infectious person Patient denies travel to an Ebola-affected area in the 21 days before illness onset. Screenin:38 Abuse screen: Denies threats or abuse. Nutritional screening: No deficits noted. fc Tuberculosis screening: No symptoms or risk factors identified. 07:04 Fall Risk None identified. em Assessment: 07:05 General: Appears in no apparent distress. uncomfortable, Behavior is calm, cooperative, em Denies fever. Pain: Complains of pain in abdomen. Neuro: Level of Consciousness is awake, alert, obeys commands, Oriented to person, place, time, situation. Cardiovascular: Capillary refill < 3 seconds is brisk. Respiratory: Airway is patent Respiratory effort is even, unlabored, Respiratory pattern is regular, symmetrical. GI: Abdomen is flat, Bowel sounds present X 4 quads. Abd is soft X 4 quads Abdomen is tender to palpation in right lower quadrant and left lower quadrant Reports diarrhea, nausea, vomiting. Derm: Skin is intact, is healthy with good turgor, Skin is pink, warm \T\ dry. Musculoskeletal: Capillary refill < 3 seconds, Range of motion: intact in all extremities. 08:26 Reassessment: Patient appears in no apparent distress at this time. Patient and/or em family updated on plan of care and expected duration. Pain level reassessed. Patient is alert, oriented x 3, equal unlabored respirations, skin warm/dry/pink. Vital Signs: 06:30 BP 130 / 104; Pulse 103; Resp 20; Temp 98.7(O); Pulse Ox 98% on R/A; Weight 83.91 kg fc (R); Height 5 ft. 11 in. (180.34 cm) (R); Pain 8/10; 07:04 BP 112 / 86; Pulse 91; Resp 18; Temp 99.4(O); Pulse Ox 96% on R/A; Pain 8/10; em 08:26 BP 119 / 85; Pulse 87; Resp 18; Pulse Ox 95% on R/A; em 06:30 Body Mass Index 25.80 (83.91 kg, 180.34 cm) fc ED Course: 06:16 Patient arrived in ED. do 06:18 Danny Milan MD is Private Physician. do 06:30 Devendra Arnett RN is Primary Nurse. rr5 06:30 Arm band placed on Patient placed in an exam room, on a stretcher. fc 06:37 Triage completed. fc 06:38 Patient has correct armband on for positive identification. Placed in gown. Bed in low fc position. Call light in reach. Pulse ox on. NIBP on. 06:42 Marline Obrien FNP-C is PHCP. kb 06:42 Ever Carvajal MD is Attending Physician. kb 06:55 Inserted saline lock: 20 gauge in right forearm, using aseptic technique. Blood rr5 collected. 07:59 CT completed. Patient tolerated procedure well. Patient moved back from CT. kw1 07:59 CT Abd/Pelvis - IV Contrast Only In Process Unspecified. EDMS 08:43 No provider procedures requiring assistance completed. IV discontinued, intact, em bleeding controlled, No redness/swelling at site. Pressure dressing applied. Administered Medications: 06:55 Drug: Zofran 4 mg Route: IVP; Site: right forearm; rr5 08:45 Follow up: Response: No adverse reaction; Pain is decreased em 06:55 Drug: NS 0.9% 1000 ml Route: IV; Rate: 1000 ml; Site: right forearm; rr5 08:45 Follow up: IV Status: Completed infusion; IV Intake: 1000ml em 06:57 Drug: morphine 4 mg Route: IVP; Site: right forearm; rr5 08:45 Follow up: Response: No adverse reaction; Pain is decreased em 08:38 Drug: Cipro 500 mg Route: PO; em 08:45 Follow up: Response: Medication administered at discharge. em Intake: 08:45 IV: 1000ml; Total: 1000ml. em Outcome: 08:32 Discharge ordered by . kb 08:43 Discharged to home ambulatory, with family. em 08:43 Condition: good 08:43 Discharge instructions given to patient, family, Instructed on discharge instructions, follow up and referral plans. medication usage, Demonstrated understanding of instructions, follow-up care, medications, Prescriptions given X 3. 08:46 Patient left the ED. em Signatures: Dispatcher [employer] EDAR Marline Obrien, LAURA LOWEP-Sydnee Eli, RN RN Isael Givens, SHARED SERVICES AND OUTSOURCING MANAGER SHARED SERVICES AND OUTSOURCING MANAGER em Magi Miller Kimberly kw1 Devendra Arnett, RN RN rr5
[2018-08-04] MEDS ORDERED: CIPROFLOXACIN HCL 500 MG TAB ONE (08:49)
== END 2018-08-04 08:46 | disposition home or self-care (01) ==
LOC: ER 06:05
DX: K52.9 Noninfective gastroenteritis and colitis, unspecified (principal); E03.9 Hypothyroidism, unspecified; F17.210 Nicotine dependence, cigarettes, uncomplicated; Z85.89 Personal history of malignant neoplasm of other organs and systems
CPT/HCPCS: 36415; 74177; 80048; 80076; 83690; 85025; 96361; 96374; 96375; 99284; J2405; J7030; Q9967